=== PATIENT | male | born 1980 | race Caucasian/White ===

== ENCOUNTER 2017-03-31 19:02 | Emergency (ER) | payer OTHER ==
[2017-03-31 19:12] VITALS: BP 141/84
--- NOTE | 2017-03-31 19:43 | ED Physician Documentation ---
PD HPI URI - Stated complaint Stated Complaint: L EAR PAIN - Chief complaint Chief Complaint: Heent - History obtained from History obtained from: Patient - History of Present Illness Timing - onset: Today Timing duration: Days (1) Timing details: Gradual onset Pain level max: 6 Pain level now: 5 Associated symptoms: Ear pain (L ear), Nasal congestion, Rhinorrhea, Sore throat , Dry cough. No: Fever, Chills, Sweats Contributing factors: Sick contact. No: Travel, Immunocompromised Improves by: Rest Worsened by: Activity, Other (cold air) Similar symptoms before: Diagnosis (recurrent ear infections) Recently seen: Not recently seen Review of Systems Constitutional: denies: Fever, Chills Ears: reports: Ear pain GI: denies: Vomiting Skin: denies: Rash Musculoskeletal: denies: Neck pain, Back pain Neurologic: denies: Headache PD PAST MEDICAL HISTORY - Past Medical History Past Medical History: Yes Other Past Medical History: chronic ear infections - Present Medications Home Medications: Ambulatory Orders Medication Instructions Recorded Confirmed Azithromycin [Zithromax] 0 mg PO DAILY #6 tablet 03/31/17 - Allergies Allergies/Adverse Reactions: Allergies Allergy/AdvReac Type Severity Reaction Status Date / Time No Known Drug Allergies Allergy Verified 03/31/17 19:11 - Social History Does the pt smoke?: No Smoking Status: Never smoker Does the pt drink ETOH?: Yes Does the pt have substance abuse?: No - Immunizations Immunizations are current?: Yes PD ED PE NORMAL - Vitals Vital signs reviewed: Yes - General General: Alert and oriented X 3, No acute distress, Well developed/nourished - HEENT HEENT: PERRL, Moist mucous membranes, Pharynx benign, Other (Right tympanic membrane is mildly erythematous, nonbulging. No fluid. Left tympanic membrane is erythematous, dull, bulging fluid present. Loss of landmarks present) - Neck Neck: Supple, no meningeal sign - Cardiac Cardiac: RRR - Respiratory Respiratory: No respiratory distress, Clear bilaterally - Derm Derm: Warm and dry - Neuro Neuro: Alert and oriented X 3 Results - Vitals Vitals: Vital Signs - 24 hr 03/31/17 19:07 Temperature 37.2 C Heart Rate 98 Respiratory 16 Rate Blood Pressure 141/84 H O2 Saturation 97 Oxygen O2 Source Room air PD MEDICAL DECISION MAKING - ED course Complexity details: considered differential, d/w patient ED course: Patient with a left acute otitis media. Will place on antibiotics for this. Also appears to have a URI. He is well-appearing, nontoxic. Normal oropharyngeal exam. Tolerating p.o. without difficulty. Declines pain medication here or for home. Patient counseled regarding signs and symptoms for which I believe and urgent re-evaluation would be necessary. Patient with good understanding of and agreement to plan and is comfortable going home at this time This document was made in part using voice recognition software. While efforts are made to proofread this document, sound alike and grammatical errors may occur. No evidence of mastoiditis Departure - Departure Disposition: Home, Self Care Clinical Impression: Otitis media Qualifiers: Otitis media type: suppurative Laterality: left Chronicity: acute Recurrence: not specified as recurrent Spontaneous tympanic membrane rupture: without spontaneous rupture Qualified Code(s): H66.002 - Acute suppurative otitis media without spontaneous rupture of ear drum, left ear Condition: Good Instructions: ED Otitis Media Acute Adult Follow-Up: your,doctor in 1 week [Other] Prescriptions: Azithromycin [Zithromax] 0 mg PO DAILY #6 tablet Comments: Take all antibiotics until gone. Return if you worsen. Your blood pressure was elevated today on check in to the emergency department. This does not mean that you have hypertension, it is a common phenomenon to check into the emergency department and have elevated blood pressure. I recommend that you see your primary care physician within the week to have it rechecked when you're feeling better. Discharge Date/Time: 03/31/17 19:47
== END 2017-03-31 19:47 | disposition home or self-care (01) ==
LOC: ED 19:02
DX: H66.002 Acute suppurative otitis media without spontaneous rupture of ear drum, left ear (principal); R03.0 Elevated blood-pressure reading, without diagnosis of hypertension
CPT/HCPCS: 99283

== ENCOUNTER 2018-05-30 11:26 | Outpatient (CLI) | payer OTHER | END 2018-05-30 11:27 | disposition home or self-care (01) | LOC: SC 11:26 | PROVIDERS: ATTEND Internal Medicine Pulmonary Disease | DX: G47.10 Hypersomnia, unspecified (principal); R06.83 Snoring; G47.21 Circadian rhythm sleep disorder, delayed sleep phase type; E66.9 Obesity, unspecified; Z68.31 Body mass index [BMI] 31.0-31.9, adult | CPT/HCPCS: 99203; 99212 ==

== ENCOUNTER 2018-07-13 20:41 | Outpatient (CLI) | payer OTHER | END 2018-07-13 20:42 | disposition home or self-care (01) | LOC: SC 20:41 | PROVIDERS: ATTEND Internal Medicine Pulmonary Disease | DX: G47.61 Periodic limb movement disorder (principal) | CPT/HCPCS: 95810 ==

== ENCOUNTER 2018-07-20 10:54 | Outpatient (CLI) | payer OTHER | END 2018-07-20 10:55 | disposition home or self-care (01) | LOC: SC 10:54 | PROVIDERS: ATTEND Nurse Practitioner Family | DX: R06.83 Snoring (principal); G47.61 Periodic limb movement disorder | CPT/HCPCS: 99212; 99214 ==

== ENCOUNTER 2018-08-22 13:43 | Outpatient (CLI) | payer OTHER | END 2018-08-22 13:44 | disposition home or self-care (01) | LOC: SC 13:43 | PROVIDERS: ATTEND Nurse Practitioner Family | DX: G47.00 Insomnia, unspecified (principal); R06.83 Snoring; G47.61 Periodic limb movement disorder | CPT/HCPCS: 99212; 99214 ==

== ENCOUNTER 2018-09-21 11:33 | Outpatient (CLI) | payer OTHER | END 2018-09-21 11:34 | disposition home or self-care (01) | LOC: SC 11:33 | PROVIDERS: ATTEND Nurse Practitioner Family | DX: G47.00 Insomnia, unspecified (principal); R06.83 Snoring; G47.61 Periodic limb movement disorder | CPT/HCPCS: 99212; 99214 ==

== ENCOUNTER 2018-11-04 09:57 | Emergency (ER) | payer OTHER ==
[2018-11-04 10:05] VITALS: BP 134/92
[2018-11-04] MEDS ORDERED: IBUPROFEN 800 MG TABLET PO STA (10:40)
[2018-11-04] MEDS ORDERED: DEXAMETHASONE 10 MG/ML VIAL PO STA (10:40)
--- NOTE | 2018-11-04 10:41 | ED Physician Documentation ---
PD HPI URI - Stated complaint Stated Complaint: EAR PX - Chief complaint Chief Complaint: Heent - History obtained from History obtained from: Patient - History of Present Illness Timing - onset: How many weeks ago (sick for 1 week, ear pain started yesterday) Pain level max: 7 Pain level now: 5 Associated symptoms: Ear pain (L ear), Nasal congestion, Rhinorrhea, Dry cough. No: Fever Contributing factors: Sick contact Improves by: Medication (motrin) Worsened by: Other (nothing) Similar symptoms before: Diagnosis (otitis media), Has not had sx before Recently seen: Not recently seen Review of Systems Constitutional: denies: Fever, Chills Ears: reports: Ear pain GI: denies: Vomiting, Diarrhea Skin: denies: Rash PD PAST MEDICAL HISTORY - Past Medical History Past Medical History: Yes GI: GERD - Past Surgical History Past Surgical History: No - Present Medications Home Medications: Ambulatory Orders Medication Instructions Recorded Confirmed Amoxicillin 500 mg PO TID #30 capsule 11/04/18 Ibuprofen [Motrin] 800 mg PO Q8H PRN #30 tablet 11/04/18 Omeprazole 20 mg PO 11/04/18 - Allergies Allergies/Adverse Reactions: Allergies Allergy/AdvReac Type Severity Reaction Status Date / Time No Known Drug Allergies Allergy Verified 11/04/18 10:05 - Social History Does the pt smoke?: No Smoking Status: Never smoker Does the pt drink ETOH?: Yes Does the pt have substance abuse?: No - Immunizations Immunizations are current?: Yes PD ED PE NORMAL - Vitals Vital signs reviewed: Yes - General General: Alert and oriented X 3, No acute distress, Well developed/nourished - HEENT HEENT: PERRL, Moist mucous membranes, Pharynx benign, Other (B TM are erythematous, bulging, loss of landmarks and fluid present) - Neck Neck: Supple, no meningeal sign - Cardiac Cardiac: RRR, No murmur - Respiratory Respiratory: Clear bilaterally - Abdomen Abdomen: Soft, Non tender, Non distended - Derm Derm: Warm and dry - Neuro Neuro: Alert and oriented X 3 - Psych Psych: Normal mood, Normal affect Results - Vitals Vitals: Vital Signs - 24 hr 11/04/18 10:04 Temperature 36.5 C Heart Rate 113 H Respiratory 18 Rate Blood Pressure 134/92 H O2 Saturation 96 Oxygen O2 Source Room air PD MEDICAL DECISION MAKING - ED course Complexity details: considered differential, d/w patient ED course: 38-year-old male presents to the emergency department with what appears to be a viral upper respiratory infection that is now complicated by bilateral acute otitis media. Will place on amoxicillin. Given a dose of dexamethasone here. We will have him follow-up with his doctor for further evaluation and care. Patient is well-appearing, nontoxic. Patient counseled regarding signs and symptoms for which I believe and urgent re-evaluation would be necessary. Patient with good understanding of and agreement to plan and is comfortable going home at this time This document was made in part using voice recognition software. While efforts are made to proofread this document, sound alike and grammatical errors may occur. Departure - Departure Disposition: 01 Home, Self Care Clinical Impression: Otitis media Qualifiers: Otitis media type: suppurative Chronicity: acute Laterality: bilateral Recurrence: not specified as recurrent Spontaneous tympanic membrane rupture: without spontaneous rupture Qualified Code(s): H66.003 - Acute suppurative otitis media without spontaneous rupture of ear drum, bilateral Condition: Good Instructions: ED Otitis Media Acute Adult Follow-Up: your,doctor in 1 week if not better [Other] Prescriptions: Amoxicillin 500 mg PO TID #30 capsule Ibuprofen [Motrin] 800 mg PO Q8H PRN #30 tablet PRN Reason: PAIN &/OR FEVER Comments: Take all antibiotics until gone. Return if you worsen. This should improve over the next few days.
[2018-11-04] MEDS ORDERED: CHERRY SYRUP 10 ML UDC PO ONE (10:49)
== END 2018-11-04 10:51 | disposition home or self-care (01) ==
LOC: ED 09:57
DX: H66.003 Acute suppurative otitis media without spontaneous rupture of ear drum, bilateral (principal)
CPT/HCPCS: 99283; A9270

== ENCOUNTER 2019-04-11 12:25 | Outpatient (CLI) | payer OTHER ==
[2019-04-11] MEDS ORDERED: IOTHALAMATE MEGLUMINE 50 ML VIAL ONE (12:50)
[2019-04-11] MEDS ORDERED: BUFFERED LIDOCAINE 10 ML SYRINGE ONE (12:50)
[2019-04-11] MEDS ORDERED: GADOPENTETATE DIMEGLUMINE 5 ML VIAL IVP ONE ×3 (12:50→14:09)
[2019-04-11] MEDS ORDERED: BUFFERED LIDOCAINE 10 ML SYRINGE IU ONE (14:09)
[2019-04-11] MEDS ORDERED: IOTHALAMATE MEGLUMINE 50 ML VIAL IVP ONE ×2 (14:09)
--- NOTE | 2019-04-11 17:20 | XRAY Report ---
Reason: PAIN IN LEFT HIP Procedure Date: 04/11/2019 Accession Number: [id number] / [id number] Procedure: FL - Arthrogram Needle Placement CPT Code: FULL RESULT: EXAM: LEFT ARTHROGRAPHIC INJECTION WITH FLUOROSCOPIC GUIDANCE EXAM DATE: 04/11/2019 02:11 PM. CLINICAL HISTORY: PAIN IN LEFT HIP. COMPARISON: None. TECHNIQUE: The risks, benefits, and alternatives of the procedure were discussed with the patient. All questions were answered. Written and verbal consent were obtained. The left hip joint was marked under fluoroscopy and prepped and draped in a sterile manner. Local anesthesia was performed with 1% lidocaine. A 22-gauge needle was then inserted into the hip joint. 10 mL of a dilute gadolinium solution was then injected. The needle was removed without immediate complication. Other: None. Fluoroscopy Time: 61 seconds. Number of Images: 2. FINDINGS: Bones and Joints: No fracture or subluxation. Injection: Fluoroscopic images demonstrate needle placement and contrast in the hip joint. IMPRESSION: Successful fluoroscopically guided arthrographic injection of the left hip. [facility]
--- NOTE | 2019-04-12 12:15 | MRI Report ---
Reason: PAIN IN LEFT HIP Procedure Date: 04/11/2019 Accession Number: [id number] / [id number] Procedure: MRI - Arthrogram Hip LT CPT Code: FULL RESULT: EXAM: LEFT HIP MRI ARTHROGRAM WITH CONTRAST EXAM DATE: 04/11/2019 02:24 PM. CLINICAL HISTORY: Pain in left hip. COMPARISON: None. TECHNIQUE: Multiplanar, multisequence T1-weighted and fluid-sensitive, small [id number] sequences of the hip and large [id number] sequences of the pelvis after an arthrographic injection of dilute gadolinium, dictated under a separate exam. Other: None. FINDINGS: Bones: No fractures or subluxations. No marrow edema or bone lesions. Left Hip: No acetabular retroversion. Decreased offset anterolateral aspect femoral head/neck junction where there is a small ossific bump and osteophyte. Alpha angle measures 65 degrees. No loose bodies. Ligamentum teres is intact. Diffuse shallow partial thickness cartilage loss. Full thickness tear anterior superior labrum 2 o'clock position. Partial thickness tearing extends to the 3 o'clock position. Fraying at the undersurface of the lateral labrum. Other Joints: Minimal degenerative changes partially visualized lower lumbar spine. Sacroiliac joints and pubic symphysis unremarkable. Minimal joint effusion of the right hip. Suggestion of decreased offset anterolateral aspect femoral head/neck junction with small osteophytes. Musculature: No edema or fatty atrophy. Minimal bilateral gluteus minimus and medius tendinopathy with mild edema in the bilateral greater trochanteric bursae. The visualized hamstring tendons are normal. Mild narrowing at the bilateral ischiofemoral spaces. Pelvic Cavity: The visualized viscera are unremarkable. No lymphadenopathy. No free fluid in the pelvis. Other: The visualized sciatic nerves are unremarkable. The subcutaneous tissues are unremarkable. IMPRESSION: 1. Full-thickness tear anterior superior left labrum. Partial thickness tearing extends into the anterior aspect. 2. Decreased offset bilateral femoral head/neck junctions. 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 3. Minimal degenerative changes at the bilateral hips. 4. Minimal bilateral gluteus minimus and medius tendinopathy with trace greater trochanteric bursitis. [facility]
== END 2019-04-11 12:26 | disposition home or self-care (01) ==
LOC: DI 12:25
PROVIDERS: ATTEND Student in an Organized Health Care Education/Training Program
DX: S73.192A Other sprain of left hip, initial encounter (principal); M16.0 Bilateral primary osteoarthritis of hip; M70.72 Other bursitis of hip, left hip; M70.71 Other bursitis of hip, right hip; M67.854 Other specified disorders of tendon, left hip; M67.853 Other specified disorders of tendon, right hip
CPT/HCPCS: 27093; 73722; 77002; Q9961